=== PATIENT | male | born 2005 | race Caucasian/White ===

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

== ENCOUNTER 2023-03-02 15:52 | Outpatient (AMB) | payer OTHER, SELFPAY ==
--- NOTE | 2023-03-02 15:57 | MHC.PC.OV ---
Vital Signs 03/02/23 15:58 Height 5 ft 10 in Weight 109 lb 8 oz BMI 15.7 BP 98/66 Blood Pressure Location Lt brachial Position Sitting Respiration 12 Pulse 99 Pulse Source Pulse Oximeter Temp 98.8 F Temp Source Temporal Artery Scan Pulse Oximetry (%) 99 Oxygen Delivery Method Room Air Intake Visit Reasons: Annual Exam Intake Note: Patient has no concerns. [employer] Officer Required: No Accompanied by: Self / Same As Patient Allergies amoxicillin Allergy (Verified 03/02/23 16:03) Hives Penicillins Allergy (Verified 03/02/23 16:03) Hives Tobacco use date assessed: 03/02/23 Dental Screening Dental Screen Date: 03/02/23 Did you have a dental visit in the last 12 months?: Yes Did you have a dental problem in the last 6 months where you did not have access to dental care?: No Was dental information given to patient?: Patient has dentist HPI Annual Exam HPI Details 17 y/o male presents for an extended exam with f/u labs and health maintenance. No recent labs to review. Pt continues to lose weight - 114 lbs to 109 lbs. Pt reports increased anxiety/depression due to his seizures. Pt reports GERD. Pt reports he is unable to work in any meaningful capacity due to his current conditions. HPI Comments History of Present Illness Details Documentation assistance for Ashwin Gonzalez MD, was provided by Pete Bejarano,? Nurse Licensed Practical on 03/02/2023 4:27 PM MEERA. I, Dr. Gonzalez, have read, observed, and verified documentation.? [facility] Medical History (Updated 03/02/23 @ 16:27 by Pete Bejarano) No pertinent past medical history Surgical History (Updated 03/02/23 @ 16:04 by Alina Vallecillo MA) No pertinent past surgical history Family History Other Mental health disorder Substance use disorder Social History Housing: House Alcohol intake: never Patient Tobacco Use Status: Never used Tobacco e-Cigarette/Vaping Use: Currently Using Second Hand Smoke Exposure: No service: No Current occupational status: unemployed Current occupational exposures/hazards: No Cognitive needs: No Hearing needs: No Vision needs: No Questionnaire PHQ-9 Over the last 2 weeks, how often have you been bothered by any of the following problems? 1. Little interest or pleasure in doing things: not at all 2. Feeling down, depressed, or hopeless: more than half the days 3. Trouble falling or staying asleep, or sleeping too much: nearly every day 4. Feeling tired or having little energy: several days 5. Poor appetite or overeating: nearly every day 6. Feeling bad about yourself - or that you are a failure or have let yourself or your family down: several days 7. Trouble concentrating on things, such as reading the newspaper or watching television: several days 8. Moving or speaking so slowly that other people could have noticed. Or the opposite - being so fidgety or restless that you have been moving around a lot more than usual: more than half the days 9. Thoughts that you would be better off or of hurting yourself in some way: not at all Total score: 13 Depression Screening Interpretation: Positive 39302 - PHQ-9 Billing: Yes Source: Developed by Drs. Alxeander Johnson, Ирина Lovett, Giovanni Stallworth and colleagues, with an educational keturah from [employer]. CLAUDIO-7 AMB Questionnaire CLAUDIO-7 Date CLAUDIO - 7 assessed: 03/02/23 Feeling nervous, anxious, or on edge: 3 = Nearly every day Not being able to stop or control worryin = More than half the days Worrying too much about different things: 2 = More than half the days Trouble relaxin = Several days Being so restless that it is hard to sit still: 3 = Nearly every day Becoming easily annoyed or irritable: 1 = Several days Feeling afraid as if something awful might happen: 2 = More than half the days Total CLAUDIO-7 score (0-4 normal; 5-9 mild; 10-14 moderate; 15-21 severe): 14 Source: Developed by Drs. Alexander Johnson, Giovanni Osuna and colleagues, with an educational keturah from [employer]. Review of Systems Const Denies chills, Denies fatigue, Denies fever(s), Denies headache(s) and Denies weakness Eyes Denies change in vision ENT Denies dizziness, Denies headache(s), Denies hearing loss, Denies nasal congestion, Denies sinus pain, Denies sinus pressure and Denies sore throat Card Denies chest pain, Denies lightheadedness, Denies dyspnea and Denies other (palpitations) Resp Denies cough, Denies dyspnea and Denies wheezing GI Denies abdominal pain, Denies melena, Denies hematochezia, Denies change in bowel habits, Denies dyspepsia and Denies nausea Denies hematuria and Denies dysuria Musc Denies abnormal gait, Denies myalgias, Denies arthralgias, Denies numbness and Denies tingling Skin/Breast Denies rash, Denies unusual bruising and Denies wounds Neuro Denies abnormal gait, Denies dizziness, Denies headache(s), Denies memory loss, Denies numbness, Denies Sensory deficit (Neuro), Denies tingling and Denies weakness Psych Reports anxiety, Reports depression and Denies memory loss Endo Denies cold intolerance, Denies fatigue, Denies heat intolerance, Denies polydipsia and Denies polyuria Boaz/Lymph Denies easy bleeding and Denies easy bruising Aller/Immun Denies wheezing Physical exam (Primary Care) Vital Signs: Last Vital Signs Temp 98.8 F 03/02/23 15:58 Pulse 99 03/02/23 15:58 Resp 12 03/02/23 15:58 BP 98/66 03/02/23 15:58 Pulse Ox 99 03/02/23 15:58 Oxygen Delivery Method Room Air 03/02/23 15:58 BMI result Body Mass Index 15.7 Tobacco/Smoking Status: Tobacco use Status Tobacco use date assessed 03/02/23 03/02/23 16:05 Patient Tobacco Use Status Never used Tobacco 03/02/23 16:05 e-Cigarette/Vaping Use Currently Using 03/02/23 16:05 PHQ-9: PHQ-9 Score PHQ-9: Total score 13 03/02/23 16:15 Depression Screening Interpretation: Positive Const General: no acute distress, well developed, alert and awake Nutritional Appearance: underweight Orientation/consciousness: patient oriented x3 HENMT Head: Yes normocephalic and Yes atraumatic Ears: hearing grossly normal bilaterally and TM's normal bilaterally General nose exam: Normal external nose present and Normal nares present Mouth: Normal oral and palatal mucosa present and moist mucous membranes Teeth and gingiva: dentition normal Throat: Yes posterior oropharynx normal Eyes General: appearance normal, both eyes and all related structures Pupils: Equal, round and reactive pupils present and Pupil accommodation reflex normal EOM: EOMs intact bilaterally Neck Neck: Yes normal visual inspection, Yes no lymphadenopathy and Yes trachea midline Thyroid: Thyroid normal Carotids: no bruits Lymphatic: no lymphadenopathy noted Chest Chest palpation & inspection: normal inspection of the chest Resp Effort & Inspection: normal respiratory effort Auscultation: clear to auscultation bilaterally Cardio Rate: regular rate Rhythm: regular rhythm Heart sounds: S1 normal heart sound present, S2 normal heart sound present, no gallops, no murmurs and no rubs Bruits: no abdominal aortic bruits and no carotid bruits GI Palpation (GI): No Abdominal aortic bruit present, Soft to palpation, nontender, No hepatosplenomegaly present and No Rebound tenderness present Auscultation: normal bowel sounds General: Yes no CVA tenderness Back/Spine/Pelvis Back: no CVA tenderness Cervical Spine: cervical ROM normal and No Cervical spine tenderness Thoracic/Lumbar Spine: thoraco-lumbar ROM normal, No pain with thoraco-lumbar ROM, No thoracic spinal tenderness and No lumbar spinal tenderness Skin Lesions: no lesions Rashes: no rashes Trauma: no lacerations or abrasions Wounds: no wounds Nails: normal Neuro General: patient oriented x3 Cranial nerves: Yes Equal, round and reactive pupils present Cognition (Neuro): normal cognition Gait exam (Neuro): Normal gait present Motor exam (neuro): 5/5 motor strength present throughout Sensory Exam: No Sensory deficit (Neuro) Deep tendon reflexes (DTR's): Right patellar reflex intensity grade: 2+ and Left patellar reflex intensity grade: 2+ Extrem General: Yes normal to inspection and No edema Psych Appearance: grossly normal Affect: Anxious affect present Attitude: cooperative Thought process: Normal thought process present Assessment and Plan Assessment & Plan (1) Weight loss: Code(s): R63.4 - Abnormal weight loss Plan: Ongoing weight loss in 17-year-old patient with underweight state. Multifactorial with anxiety, depression, seizure disorder and possible medication and GI comorbidities impacting his weight. Had referred to gastroenterology but patient has not heard back from them. Referred to [facility] Pediatric Gastroenterology and Nutrition Department. Needs follow-up to ensure that he is scheduled. (2) Depression with anxiety: Code(s): F41.8 - Other specified anxiety disorders Plan: Still scoring significantly high with PHQ-9 and claudio 7. Does not want to take any more medications except his Keppra. Briefly discussed medication but will hold off and put effort into finding him a therapist. He says he has been working on this but that his insurance is a barrier to getting a therapist or psychiatrist. I have again asked the nurse navigators to help him get a therapist immediately. (3) Seizure: Code(s): R56.9 - Unspecified convulsions Plan: History of seizure disorder and this seems to be poorly controlled. He wants to be referred to another neurologist. Will refer to Neurology as patient request (4) GERD (gastroesophageal reflux disease): Code(s): K21.9 - Gastro-esophageal reflux disease without esophagitis Plan: Reflux/gastritis and acid stomach each morning which are likely affecting his appetite Start Pepcid at bedtime Referred to Pediatric Gastroenterology (5) Adult general medical exam: Code(s): Z00.00 - Encounter for general adult medical examination without abnormal findings Plan: 17-year-old male presents for extended exam Ongoing concerns regarding weight, anxiety and depression and seizure disorder - see above Requesting nurse navigator assist with referrals, services and some follow-up to ensure he receives them. Currently, based on the above conditions, patient is unable to work in any meaningful capacity. He is currently disabled. Will fill out paperwork for patient when he brings this. Orders: Orders Complete Blood Count Auto Diff Today D64.9 - Anemia, unspecified, Z00.00 - Encounter for general adult medical examination without abnormal findings Comprehensive [place]. Panel Fast Today R63.6 - Underweight, Z00.00 - Encounter for general adult medical examination without abnormal findings Microalbumin, Random (w Creat) Today I10 - Essential (primary) hypertension, R63.6 - Underweight Lipid Panel Today R63.6 - Underweight, Z00.00 - Encounter for general adult medical examination without abnormal findings TSH reflex Free T4 Today R63.6 - Underweight, Z00.00 - Encounter for general adult medical examination without abnormal findings UA and rflx microscopic Today R63.6 - Underweight, Z00.00 - Encounter for general adult medical examination without abnormal findings Vitamin B12 and Folate Today E53.8 - Deficiency of other specified B group vitamins, R63.6 - Underweight Vitamin D 25-OH Total Today E55.9 - Vitamin D deficiency, unspecified, R63.6 - Underweight Referrals Pediatric Gastroenterology Referral R63.4 - Abnormal weight loss, R63.6 - Underweight Nurse Navigator Referral F41.8 - Other specified anxiety disorders Neurology Referral G40.309 - Generalized idiopathic epilepsy and epileptic syndromes, not intractable, without status epilepticus Medications: New famotidine 20 mg PO BEDTIME 90 days 90 tabs 2RF Coding Level of Care Code Est Pt Level 4 (97663) Diagnoses Weight loss R63.4 Depression with anxiety F41.8 Seizure R56.9 GERD (gastroesophageal reflux disease) K21.9 Adult general medical exam Z00.00
[2023-03-02 15:58] VITALS: BP 98/66; PULSE 99; RESP 12; TEMP 37.1; O2SAT 99; BMI 15.7
== END 2023-03-02 17:03 | disposition home or self-care (01) ==
PROVIDERS: Visit Provider Family Medicine
DX: R63.4 Abnormal weight loss (principal); F41.8 Other specified anxiety disorders; R56.9 Unspecified convulsions; K21.9 Gastro-esophageal reflux disease without esophagitis; Z00.00 Encounter for general adult medical examination without abnormal findings
CPT/HCPCS: 99214

== ENCOUNTER 2023-06-21 09:42 | Outpatient (REF) | payer OTHER, SELFPAY ==
[2023-06-21 11:16] LABS: MANUAL DIFF FLAG NO
[2023-06-21 11:43] LABS: Basophils Percent Auto 0.4 % (0-2); Eosinophils Absolute Auto 0.1 X10*3/uL (0.0-0.4); Eosinophils Percent Auto 1.3 % (0-4); Hematocrit 42.4 % (42.0-52.0); Hemoglobin 14.4 g/dl (14.0-18.0); Imm Gran Abs Auto 0.01 X10*3/uL (0.00-0.03); Imm Gran Pct Auto 0.1 % (0.0-0.4); Lymphocytes Absolute Auto 3.6 X10*3/uL (1.2-4.9); Lymphocytes Percent Auto 50.3 % (20-40); Mean Corpuscular Hemoglobin 32.7 pg (27.0-33.0); Mean Corpuscular Volume 96.1 fL (80.0-98.0); Mean Platelet Volume 12.6 fL (9.4-12.4); Monocytes Absolute Auto 0.6 X10*3/uL (0.1-1.2); Monocytes Percent Auto 7.7 % (2-11); Neutrophils Absolute Auto 2.9 x10*3/uL (2.0-8.3); Neutrophils Percent Auto 40.2 % (45-73); Platelet Count 158 X10*3/uL (160-400); Red Blood Count 4.41 X10*6/uL (4.60-5.80); Red Cell Distribution Width 11.5 % (11.0-16.0); White Blood Count 7.2 X10*3/uL (4.8-10.8)
[2023-06-21 12:30] LABS: Alanine Aminotransferase 8 U/L (0-40); Albumin Level 4.9 g/dL (3.5-5.0); Alkaline Phosphatase 84 U/L (39-117); Anion Gap 14 (12-20); Aspartate Amino Transferase 16 U/L (5-37); Bilirubin Total 0.5 mg/dL (0.0-1.0); Blood Urea Nitrogen 8 mg/dL (9-16); Calcium 10.1 mg/dL (8.4-10.2); Carbon Dioxide 27 mmol/L (22-29); Chloride 107 mmol/L (96-108); Cholesterol 102 mg/dL (<200); Estimated Glomerular Filt Rate > 60; Glucose Fasting 100 mg/dL (60-99); Glucose Random 100 mg/dL (60-115); HDL Cholesterol 36 mg/dL (>40); LDL Cholesterol Calculated 53 mg/dL (<100); Potassium 4.3 mmol/L (3.3-5.1); Sodium 144 mmol/L (135-145); TSH reflex Free T4 1.48 uIU/mL (0.32-4.0); Total Protein 7.9 g/dL (6.5-8.0); Triglycerides 67 mg/dL (<150); Vitamin D 25-OH Total 38.2 ng/mL (>30)
[2023-06-21 12:39] LABS: Vitamin B12 373 pg/mL (200-900)
== END 2023-06-21 09:43 | disposition home or self-care (01) ==
LOC: HO.WFDLDS 09:42
PROVIDERS: Visit Provider Family Medicine
DX: Z00.00 Encounter for general adult medical examination without abnormal findings (principal); D64.9 Anemia, unspecified; I10 Essential (primary) hypertension; R63.6 Underweight; E55.9 Vitamin D deficiency, unspecified; R79.89 Other specified abnormal findings of blood chemistry
CPT/HCPCS: 36415; 80053; 80061; 82306; 82607; 82746; 84443; 85025

== ENCOUNTER 2023-07-03 15:37 | Outpatient (AMB) | payer OTHER, SELFPAY ==
--- NOTE | 2023-07-03 15:32 | MHC.PC.OV ---
Intake Visit Reasons: /u [id number] Intake Note: Patient is calling to follow up on labs today. Allergies amoxicillin Allergy (Verified 03/02/23 16:03) Hives Penicillins Allergy (Verified 03/02/23 16:03) Hives Tobacco use date assessed: 07/03/23 HPI /u [id number] HPI Details 18 y/o male presents to f/u CPE-labs via telemedicine. Labs were drawn 06/21/23. Reviewed labs with pt. Improving mild anemia. Borderline elevated fasting glucose of 100. Triglycerides 67. TC 102. LDL 53. HDL low at 36. Pt reports he now has a therapist he sees weekly. He reports he feels stable right now regarding his anxiety but does fluctuate. [facility] Medical History No pertinent past medical history Surgical History No pertinent past surgical history Family History Other Mental health disorder Substance use disorder Social History Housing: House Alcohol intake: never Patient Tobacco Use Status: Never used Tobacco e-Cigarette/Vaping Use: Currently Using Second Hand Smoke Exposure: No service: No Current occupational status: unemployed Current occupational exposures/hazards: No Cognitive needs: No Hearing needs: No Vision needs: No Questionnaire CLAUDIO-7 AMB Questionnaire CLAUDIO-7 Date CALUDIO - 7 assessed: 03/02/23 Source: Developed by Drs. Alexander Johnson, Ирина Lovett, Giovanni Stallworth and colleagues, with an educational keturah from [employer]. Physical exam (Primary Care) Tobacco/Smoking Status: Tobacco use Status Tobacco use date assessed 07/03/23 07/03/23 15:37 Patient Tobacco Use Status Never used Tobacco 07/03/23 15:37 e-Cigarette/Vaping Use Currently Using 07/03/23 15:37 Telehealth Telehealth Location of provider rendering services: practice address Location of patient: address on file Patient Identification confirmed using: Name, : Yes Telehealth method: voice only Patient verbally consented to treatment: Yes Patient verbally consented to billing insurance company: Yes Patient informed of any privacy concerns related to visit: Yes Minutes spent on Phone/Video with Pt.: 12 Assessment and Plan Assessment & Plan (1) Mild anemia: Code(s): D64.9 - Anemia, unspecified Plan: We?can?follow-up?on?this?at?a?subsequent?visit (2) Elevated fasting glucose: Code(s): R73.01 - Impaired fasting glucose Plan: Borderline?mildly?elevated?fasting?blood?sugar,?likely?secondary?to?his?antiseizure?medication We?can?follow-up?on?this?at?subsequent?lab?draw (3) Low HDL (under 40): Code(s): E78.6 - Lipoprotein deficiency Plan: Encouraged?weight-bearing?exercise?and?a?diet?higher?in?[place]?3?fatty?acids (4) Seizure: Code(s): R56.9 - Unspecified convulsions Plan: History?of?seizures. He?had?requested?a?referral?to?a?new?neurologist?and?I?had?referred?him?to?[facility]?neurology. Now?followed?by??[facility]?house?has?continued?his?Keppra?and?added?Depakote Will?request?neurologists?note Continue?to?follow-up?with?Neurology?as?recommended (5) GERD (gastroesophageal reflux disease): Code(s): K21.9 - Gastro-esophageal reflux disease without esophagitis Plan: Patient?still?has?not?had?an?appointment?with?[facility]?gastroenterology Referral?is?sent?again?today (6) Underweight: Code(s): R63.6 - Underweight Plan: As?above,?patient?is?referred?to?[facility]?gastroenterology Will?have?patient?return?in?a?few?months?for?follow-up Orders: Referrals Gastroenterology Referral K21.9 - Gastro-esophageal reflux disease without esophagitis, R14.0 - Abdominal distension (gaseous), R63.6 - Underweight Coding Level of Care Code Tele Est Pt Level 2 (60649) Diagnoses Mild anemia D64.9 Elevated fasting glucose R73.01 Low HDL (under 40) E78.6 Seizure R56.9 GERD (gastroesophageal reflux disease) K21.9 Underweight R63.6
== END 2023-07-03 17:00 ==
LOC: HO.HMGFM 15:38
PROVIDERS: PCP Family Medicine; Visit Provider Family Medicine
DX: D64.9 Anemia, unspecified (principal); R73.01 Impaired fasting glucose; E78.6 Lipoprotein deficiency; R56.9 Unspecified convulsions; K21.9 Gastro-esophageal reflux disease without esophagitis; R63.6 Underweight
CPT/HCPCS: 99212

== ENCOUNTER 2023-10-09 08:25 | Outpatient (AMB) | payer OTHER, SELFPAY ==
[2023-10-09 08:32] VITALS: BP 124/52; PULSE 104; RESP 12; O2SAT 99; BMI 16.2
--- NOTE | 2023-10-09 08:32 | A.OFFPC_ITS ---
Vital Signs 10/09/23 08:32 Height 5 ft 10 in Weight 113 lb BMI 16.2 BP 124/52 L Blood Pressure Location Rt brachial Position Sitting Respiration 12 Pulse 104 H Pulse Source Pulse Oximeter Pulse Oximetry (%) 99 Oxygen Delivery Method Room Air Intake Visit Reasons: Follow-up?underweight, anxiety/depression, GERD Intake Note: Patient is here to follow up. Pool Cleaner Required: No Accompanied by: Self / Same As Patient Allergies amoxicillin Allergy (Verified 10/09/23 08:37) Hives Penicillins Allergy (Verified 10/09/23 08:37) Hives Tobacco use date assessed: 10/09/23 Dental Screening Dental Screen Date: 10/09/23 Did you have a dental visit in the last 12 months?: No Did you have a dental problem in the last 6 months where you did not have access to dental care?: No Was dental information given to patient?: Patient has dentist HPI Follow-up?underweight, anxiety/depression, GERD HPI Details 18 y/o male presents to f/u underweight, anxiety/depression, GERD. Pt had been referred to gastroenterology for GERD and underweight. He does not remember if he has made an appt. with them or not. He continues to see Dr. Grimm [facility] for seizure disorder. He reports he has a sleep study scheduled next week. CLAUDIO-7 14, PHQ-9 15. He reports he has been seeing a therapist since May. HPI Comments History of Present Illness Details Documentation assistance for Ashwin Gonzalez MD, was provided by Pete Bejarano,? [employer] on 10/09/2023 9:04 AM EST. I, Dr. Gonzalez, have read, observed, and verified documentation. [facility], [facility] Medical History No pertinent past medical history Surgical History No pertinent past surgical history Family History Other Mental health disorder Substance use disorder Social History Household Members: Family Housing: House Are you a primary child care center administrator to a significant other at home: No Do you presently have visiting nurse or other home services: No Alcohol intake: never Patient Tobacco Use Status: Never used Tobacco e-Cigarette/Vaping Use: Currently Using Second Hand Smoke Exposure: No Substance Use Type: Marijuana service: No Current occupational status: unemployed Current occupational exposures/hazards: No Cognitive needs: No Hearing needs: No Vision needs: No Questionnaire PHQ-9 Over the last 2 weeks, how often have you been bothered by any of the following problems? 1. Little interest or pleasure in doing things: more than half the days 2. Feeling down, depressed, or hopeless: more than half the days 3. Trouble falling or staying asleep, or sleeping too much: nearly every day 4. Feeling tired or having little energy: several days 5. Poor appetite or overeating: nearly every day 6. Feeling bad about yourself - or that you are a failure or have let yourself or your family down: several days 7. Trouble concentrating on things, such as reading the newspaper or watching television: several days 8. Moving or speaking so slowly that other people could have noticed. Or the opposite - being so fidgety or restless that you have been moving around a lot more than usual: more than half the days 9. Thoughts that you would be better off or of hurting yourself in some way: not at all Total score: 15 Depression Screening Interpretation: Positive Depression Screening Done: Yes 85221 - PHQ-9 Billing: Yes Source: Developed by Drs. Alexander Johnson, Ирина Lovett, Giovanni Stallworth and colleagues, with an educational keturah from [employer]. Thrive Questionnaire Date Thrive assessed: 10/09/23 I am a: Patient What is your living situation today?: I have a steady place to live Within the past 12 months, did the food you bought not last and you didn't have the money to get more?: Never true Within the past 12 months, did you worry whether your food would run out before you got money to buy more?: Never true Do you have trouble paying for medicines?: No Do you have trouble getting transportation to medical appointments?: No Do you have trouble paying your heating and electricity bill?: No Do you have trouble taking care of your child, family member or friend?: No Do you have trouble with day-to-day activities such as bathing, preparing meals, shopping, managing finances, etc.?: No Are you currently unemployed and looking for a job?: No Are you interested in more education?: No Please select the resources that you would like help with: None Currently or been in a relationship where the following occur: no concerns reported THRIVE Score: 0 AUDIT C Alcohol Use Questionnaire (AUDIT-C) 1. How often do you have a drink containing alcohol?: Never 3. How often do you have six or more drinks on one occasion?: Never Total Score: 0 CLAUDIO-7 AMB Questionnaire CLAUDIO-7 Date CLAUDIO - 7 assessed: 10/09/23 Feeling nervous, anxious, or on edge: 3 = Nearly every day Not being able to stop or control worryin = More than half the days Worrying too much about different things: 2 = More than half the days Trouble relaxin = More than half the days Being so restless that it is hard to sit still: 2 = More than half the days Becoming easily annoyed or irritable: 1 = Several days Feeling afraid as if something awful might happen: 2 = More than half the days Total CLAUDIO-7 score (0-4 normal; 5-9 mild; 10-14 moderate; 15-21 severe): 14 Source: Developed by Drs. Alexander Johnson, Ирина Lovett, Giovanni Stallworth and colleagues, with an educational keturah from [employer]. CLAUDIO-7 Assessment Billing CLAUDIO-7 Assessment Tool: CLAUDIO-7 Assessment 57342 Review of Systems Const Denies chills, Denies fatigue, Denies fever(s), Denies headache(s) and Denies weakness ENT Denies dizziness and Denies headache(s) Card Denies chest pain, Denies lightheadedness, Denies dyspnea and Denies other (Palpitations) Resp Denies cough, Denies dyspnea, Denies wheezing and Denies other ( shortness of breath) Musc Denies numbness and Denies tingling Neuro Denies dizziness, Denies headache(s), Denies numbness, Denies tingling, Denies paresthesias and Denies weakness Psych Reports anxiety and Reports depression Endo Denies fatigue Aller/Immun Denies wheezing Physical exam (Primary Care) Vital Signs: Last Vital Signs Pulse 104 H 10/09/23 08:32 Resp 12 10/09/23 08:32 BP 124/52 L 10/09/23 08:32 Pulse Ox 99 10/09/23 08:32 Oxygen Delivery Method Room Air 10/09/23 08:32 BMI result Body Mass Index 16.2 Tobacco/Smoking Status: Tobacco use Status Tobacco use date assessed 10/09/23 10/09/23 08:39 Patient Tobacco Use Status Never used Tobacco 10/09/23 08:39 e-Cigarette/Vaping Use Currently Using 10/09/23 08:39 PHQ-9: PHQ-9 Score PHQ-9: Total score 15 10/09/23 08:46 Depression Screening Interpretation: Positive Thrive Assessment: Date of Thrive Assessment Date Thrive assessed 10/09/23 10/09/23 08:42 Currently or been in a relationship where the following occur: no concerns reported Const General: no acute distress and well developed Nutritional Appearance: well nourished Orientation/consciousness: patient oriented x3 HENMT Head: Yes normocephalic and Yes atraumatic Eyes General: appearance normal, both eyes and all related structures Pupils: Equal, round and reactive pupils present EOM: EOMs intact bilaterally Resp Effort & Inspection: normal respiratory effort Auscultation: clear to auscultation bilaterally Cardio Rate: regular rate Rhythm: regular rhythm Heart sounds: S1 normal heart sound present, S2 normal heart sound present, no gallops, no murmurs and no rubs Neuro General: patient oriented x3 and gait normal Cranial nerves: Yes Equal, round and reactive pupils present Psych Affect: normal affect Assessment and Plan Assessment & Plan (1) Underweight: Code(s): R63.6 - Underweight Plan: Patient?has?gained?about?4?lb Will?continue?to?follow (2) Generalized seizure disorder: Code(s): G40.309 - Generalized idiopathic epilepsy and epileptic syndromes, not intractable, without status epilepticus Plan: Stable. Has?now?been?seeing?Neurology,??Alfa I?have?requested?his?most?recent?note (3) Depression with anxiety: Code(s): F41.8 - Other specified anxiety disorders Plan: Ongoing?depression?and?anxiety Patient?now?has?a?therapist Will?try?citalopram (4) GERD (gastroesophageal reflux disease): Code(s): K21.9 - Gastro-esophageal reflux disease without esophagitis Plan: Had?referred?patient?to?[facility]?gastroenterology For?GERD?and?also?underweight?status Unclear?if?he?has?been?contacted. Will?ask?office?staff?to?check?on?status?of?referral Medications: New citalopram 20 mg PO DAILY 30 tabs 2RF 30 days Coding Level of Care Code Est Pt Level 4 (41473) Diagnoses Underweight R63.6 Generalized seizure disorder G40.309 Depression with anxiety F41.8 GERD (gastroesophageal reflux disease) K21.9 Additional Codes CLAUDIO-7 Assessment Billing - CLAUDIO-7 Assessment Tool: CLAUDIO-7 Assessment 23642 ([id number])
== END 2023-10-09 09:08 | disposition home or self-care (01) ==
PROVIDERS: PCP Family Medicine; Visit Provider Family Medicine
DX: R63.6 Underweight (principal); G40.309 Generalized idiopathic epilepsy and epileptic syndromes, not intractable, without status epilepticus; F41.8 Other specified anxiety disorders; K21.9 Gastro-esophageal reflux disease without esophagitis
CPT/HCPCS: 96127; 99214

== ENCOUNTER 2024-01-08 09:30 | Outpatient (AMB) | payer OTHER, SELFPAY ==
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
[2024-01-08 09:34] VITALS: BP 108/62; PULSE 83; O2SAT 99; BMI 15.8
== END 2024-01-08 09:59 | disposition home or self-care (01) ==
PROVIDERS: PCP Family Medicine; Visit Provider Family Medicine
DX: G40.309 Generalized idiopathic epilepsy and epileptic syndromes, not intractable, without status epilepticus (principal); F41.8 Other specified anxiety disorders; R63.6 Underweight
CPT/HCPCS: 99214

== ENCOUNTER 2024-04-30 12:06 | Outpatient (AMB) | payer OTHER, SELFPAY ==
--- NOTE | 2024-04-30 12:09 | A.OFFPC_ITS ---
Vital Signs 04/30/24 12:11 Height 5 ft 10 in Weight 120 lb BMI 17.2 BP 98/66 Blood Pressure Location Rt brachial Position Sitting Respiration 13 Pulse 86 Pulse Source Pulse Oximeter Pulse Oximetry (%) 99 Oxygen Delivery Method Room Air Intake Visit Reasons: cpe Intake Note: annual physical Allergies amoxicillin Allergy (Verified 04/30/24 12:17) Hives Penicillins Allergy (Verified 04/30/24 12:17) Hives Medication List - Last Reconciled 04/30/24 by SARAI Devine- citalopram 20 mg PO DAILY 30 days divalproex ER (Depakote ER) 500 mg PO DAILY levetiracetam (Keppra) 500 mg PO Q12H 30 days Tobacco use date assessed: 01/08/24 Dental Screening Dental Screen Date: 10/09/23 HPI HPI Comments History of Present Illness Details 19 y/o M with seizure disorder, MDD, CLAUDIO , underweight, tourrettes with ocular tic, L sided bells palsy, muscular dystrophy, marijuana use, GERD, Vit d def, Surgery: None Family hx: no changes since last visit Social: Drives; looking for a job; lives w/ Mom and Sister Specialists: Psych -- decided to not follow through w/ this at this time Neuro q6 mo visits Counseling - feels this is going really well Patient of Dr Morales here today for CPE Well controlled Sz, last one May 2021. Eyes: wears glasses, exam 2023 Mood: good. Eating more; feels therapy is going good. + wt gain Hearing - no issues Declined labs. Plan Declined labs Declined Flu and Tdap Marijuana cessation education provided Screen for physical abuse given exam, adamantly denied. Cont meds and f/u with team RTO 3 months to fu with PCP for Mood and Wt, sooner PRN PFSH Medical History No pertinent past medical history Surgical History No pertinent past surgical history Family History Other Mental health disorder Substance use disorder Social History Household Members: Family Housing: House Are you a primary medical care administrator to a significant other at home: No Do you presently have visiting nurse or other home services: No Alcohol intake: never Patient Tobacco Use Status: Never used Tobacco e-Cigarette/Vaping Use: Currently Using Second Hand Smoke Exposure: No Substance Use Type: Marijuana service: No Current occupational status: unemployed Current occupational exposures/hazards: No Cognitive needs: No Hearing needs: No Vision needs: No Questionnaire PHQ-9 Over the last 2 weeks, how often have you been bothered by any of the following problems? 1. Little interest or pleasure in doing things: not at all 2. Feeling down, depressed, or hopeless: not at all 3. Trouble falling or staying asleep, or sleeping too much: several days 4. Feeling tired or having little energy: several days 5. Poor appetite or overeating: not at all 6. Feeling bad about yourself - or that you are a failure or have let yourself or your family down: not at all 7. Trouble concentrating on things, such as reading the newspaper or watching television: not at all 8. Moving or speaking so slowly that other people could have noticed. Or the opp osite - being so fidgety or restless that you have been moving around a lot more than usual: several days 9. Thoughts that you would be better off or of hurting yourself in some way: not at all Total score: 3 Depression Screening Interpretation: Negative Depression Screening Done: Yes 69470 - PHQ-9 Billing: Yes Source: Developed by Drs. Alexander Johnson, Ирина Lovett, Giovanni Stallworth and colleagues, with an educational keturah from [employer]. Thrive Questionnaire Date Thrive assessed: 04/30/24 I am a: Patient What is your living situation today?: I have a place to live, but I am worried about losing it in the future Within the past 12 months, did the food you bought not last and you didn't have the money to get more?: I choose not to answer this question Within the past 12 months, did you worry whether your food would run out before you got money to buy more?: I choose not to answer this question Do you have trouble paying for medicines?: No Do you have trouble getting transportation to medical appointments?: No Do you have trouble paying your heating and electricity bill?: No Do you have trouble taking care of your child, family member or friend?: I choose not to answer this question Do you have trouble with day-to-day activities such as bathing, preparing meals, shopping, managing finances, etc.?: No Are you currently unemployed and looking for a job?: Yes Are you interested in more education?: Yes Please select the resources that you would like help with: None Currently or been in a relationship where the following occur: No concerns reported THRIVE Score: 1 AUDIT C Alcohol Use Questionnaire (AUDIT-C) 1. How often do you have a drink containing alcohol?: Never 2. How many drinks containing alcohol do you have on a typical day when you are drinking?: 1 or 2 3. How often do you have six or more drinks on one occasion?: Never Total Score: 0 Score Reviewed/Action Taken: Yes CLAUDIO-7 AMB Questionnaire CLAUDIO-7 Date CLAUDIO - 7 assessed: 04/30/24 Feeling nervous, anxious, or on edge: 1 = Several days Not being able to stop or control worryin = Not at all Worrying too much about different things: 0 = Not at all Trouble relaxin = Several days Being so restless that it is hard to sit still: 0 = Not at all Becoming easily annoyed or irritable: 1 = Several days Feeling afraid as if something awful might happen: 0 = Not at all Total CLAUDIO-7 score (0-4 normal; 5-9 mild; 10-14 moderate; 15-21 severe): 3 Source: Developed by Drs. Alexander Johnson, Ирина Lovett, Giovanni Stallworth and colleagues, with an educational keturah from [employer]. CLAUDIO-7 Assessment Billing CLAUDIO-7 Assessment Tool: CLAUDIO-7 Assessment 03812 Review of Systems Const Details: Constitutional: Denies fever. Skin: Denies rash. Eye: Denies eye pain. ENMT: Denies sore throat and nasal congestion. Respiratory: Denies shortness of breath and cough. Gastrointestinal: Denies nausea, vomiting or abdominal pain. Cardiovascular: Denies chest pain and syncope. Genitourinary: Denies dysuria. Musculoskeletal: Denies back pain and extremity pain. Neurologic: Denies headaches, confusion, and weakness. Psychiatric: Denies suicidal thoughts and substance abuse. Allergy/ Immunologic: Denies impaired immunity. Physical exam (Primary Care) Vital Signs: Last Vital Signs Pulse 86 04/30/24 12:11 Resp 13 04/30/24 12:11 BP 98/66 04/30/24 12:11 Pulse Ox 99 04/30/24 12:11 Oxygen Delivery Method Room Air 04/30/24 12:11 BMI result Body Mass Index 17.2 BMI Assessment/Plan discussion: Low BMI Low, Plan discussed: lifestyle, increase calorie intake and dietary Tobacco/Smoking Status: Tobacco use Status Tobacco use date assessed 01/08/24 04/30/24 12:11 Patient Tobacco Use Status Never used Tobacco 04/30/24 12:11 e-Cigarette/Vaping Use Currently Using 04/30/24 12:11 PHQ-9: PHQ-9 Score PHQ-9: Total score 3 04/30/24 12:15 Depression Screening Interpretation: Negative Thrive Assessment: Date of Thrive Assessment Date Thrive assessed 04/30/24 04/30/24 12:11 Currently or been in a relationship where the following occur: No concerns reported Const Other: General: Thin. Appears stated age. Head: Normocephalic, atraumatic. Eyes: Pupils are equal, round and reactive to light and accommodation. Conjunctivae are clear. Vision grossly normal. Ears: TMs clear AU, EACS WNL Nose: Patent, without discharge. Mouth: There are no ulcers or lesions noted. No inflammation, no post nasal drip, no plaques nor exudates. Neck: Supple, no adenopathy or thyromegaly. Lungs: Clear to auscultation bilaterally. No rales, rhonchi or wheeze noted. Good air flow in all goff. Heart: Regular rate and rhythm. No murmurs, click, rubs or gallops are noted. Abdomen: Bowel sounds present in all quadrants. The abdomen is soft, nontender, with no masses or organomegaly noted. No hernias are noted. Musculoskeletal: Joints are nontender, without swelling, redness, or effusions. Range of motion is observed to be normal. Pulses: Peripheral pulses are equal and palpable bilaterally. Extremities: No clubbing, cyanosis nor edema is noted. Neurologic: Gait and station normal. Cranial Nerves 2-12 intact. Motor strength grossly symmetrical and intact. No sensory loss. Balance normal. Skin: No rashes, ulcers, or lesions noted. Turgor is good. Skin color is good. Hair and nails are without abnormalities. On posterior back there are several transverse linear scars. When asked about this patient reports that these are stretch ladd. I specifically asked him about any physical abuse or self-harm. He adamantly denied Psych: Normal eye contact, affect and mood appropriate, and normal interactions. Patient is alert and appropriate to context. Coding Level of Care Code Est Pt Prev Care 18-39y(93470) Diagnoses Encounter for general adult medical examination without abnormal findings Z00.00 Marijuana use F12.90 Tourette syndrome F95.2 Generalized seizure disorder G40.309 Underweight R63.6 Depression with anxiety F41.8 Additional Codes CLAUDIO-7 Assessment Billing - CLAUDIO-7 Assessment Tool: CLAUDIO-7 Assessment 13708 ([id number]) Assessment & Plan Assessment & Plan (1) Encounter for general adult medical examination without abnormal findings: Code(s): Z00.00 - Encounter for general adult medical examination without abnormal findings Plan: . (2) Marijuana use: Code(s): F12.90 - Cannabis use, unspecified, uncomplicated Category: Medical Plan: Marijuana: Natural = Safe, Right? Marijuana is readily available to use in many states in the [facility]. Understanding the possible risks of use is important to ensure the safety. No matter how you use marijuana (smoke it, eat it, or apply to your skin), it may cause problems with both short term and terminal computer operator use How marijuana affects your BRAIN: Potential effects from Short Term Use Poor focus, memory and reaction time Difficulty with problem solving Hallucinations, paranoia, anxiety Potential effects from Polysomnography Technician Use Memory problems and trouble learning new things Depression, hallucinations, paranoia, anxiety, worsening PTSD symptoms addiction Brain. It is not safe to drive while on marijuana. It makes it hard to aviation project manager distance, concentrate, react quickly to signals and sounds, be alert and coordinated. If alcohol is combined, this risk is even higher! In regular users, some of the effects from terminal computer operator use may last for days or even weeks after stopping marijuana. How inhaling marijuana affects your LUNGS: Inhaling harmful chemicals Gases Small particles Carcinogens (toxins linked to cancer) Breathing problems similar to tobacco smokers Daily cough with mucus Difficulty breathing Lung infections (bronchitis, pneumonia) Lungs How marijuana affects your HEART: Increases risk of heart attack Within the first hour of smoking Increases heart rate 20?100% increase after smoking Increase lasts up to three hours Changes in heart rhythm Feels like your heart skips a beat, or is fluttering, or beating too fast or too slow Heart Is it SAFE to use marijuana with other medications? A combination that can be concerning is the use of opioids and/or benzodiazepines with marijuana. Opioids + Benzodiazepines + Marijuana: Drowsiness: All three can cause drowsiness. Reaction time: All three can reduce reaction time. Do not drive or operate machinery. Overdose: Opioids and Benzodiazepines can cause reduced breathing and in some cases, breathing can stop and a person can . Marijuana containing higher levels of THC may cause difficulty with thinking and memory and this could result in medication errors where extra doses of opioids, benzodiazepines, or other medications may be taken. What is the harm? Example of Opioids Morphine (MS Contin?, Portia?) Oxycodone (Percocet?, OxyContin?) Hydrocodone (Vicodin?, Dumas?) Fentanyl (Duragesic?) Methadone Heroin Example of Benzodiazepines Lorazepam (Ativan?) Diazepam (Valium?) Alprazolam (Xanax?) Clonazepam (Klonopin?) If you have specific questions about the safety of using marijuana with other medications, please contact your provider or pharmacist. Some marijuana users can become addicted! You can have problems with marijuana withdrawal. You may have withdrawal symptoms the day after you stop using. These can get worse 2 to 3 days after using and can take 1 to 2 weeks or longer to go away. Recovery and Treatment Contact your provider or health care team if you are having concerns about your marijuana use or to learn more about available treatment services. The marijuana plant is not an FDA-approved medicine: The U.S. Food and Drug Administration (FDA) has not approved the marijuana plant as a medication due to lack of studies on the risks and benefits. Marijuana contains over 100 chemical substances known as cannabinoids. Some of these, like tetrahydrocannabinol (THC), have mind altering effects and can be intoxicating. Cannabidiol (CBD), another cannabinoid, does not cause the same ?high? users of THC experience. THC has been studied for the treatment of several conditions, including nausea and increasing appetite. CBD is similarly being studied for a number of conditions, including childhood epilepsy and inflammation. What is different between the marijuana product I get from the marijuana shop and a prescription from the pharmacy? The right dose of any medicine is important. A specific dose of THC is approved to treat nausea, but high doses of THC may cause vomiting. The ingredients in a medicine must be measured and stay the same from one dose to the next. The marijuana plant contains unknown ingredients that change from plant to plant. This makes it hard to control the ?dose? of marijuana needed to treat a condition and use it in the same way we use other medicines. Future studies are ongoing to establish the role of the marijuana plant and the cannabinoids found in the plant for treatment of medical conditions. If you have questions about using a marijuana product for a medical condition, please discuss this with your medical provider to determine the most appropriate treatment for you. [facility] Providers are not able to prescribe marijuana products. Information in this document was compiled by the [facility] Substance Abuse treatment and Education ([facility]). It contains information from factsheets by the National [place] on Drug Abuse (www.drugabuse.gov) and presentation by Aditi Cotto, Aditi Simmons, & Kevin Licona (2010) entitled ?What providers need to know about cannabis use in Veterans with mental health conditions: Research, policy, practice,? and an additional reference: Haleigh Patel M.D., Jas Villatoro, Ph.D., Cesar Rojas M.D., and Dimple Eduardo, Ph.D: Adverse Effects of Marijuana. N Engl J Med 2014; 370:5528-5668, December 18, 2013 DOI: 10.1056/[id number]. [place] [employer] (3) Tourette syndrome: Comment: With left ocular tick Code(s): F95.2 - Tourette's disorder Category: Medical Plan: . (4) Generalized seizure disorder: Code(s): G40.309 - Generalized idiopathic epilepsy and epileptic syndromes, not intractable, without status epilepticus Category: Medical Plan: . (5) Underweight: Code(s): R63.6 - Underweight Category: Medical Plan: . (6) Depression with anxiety: Code(s): F41.8 - Other specified anxiety disorders Category: Medical Plan: . Plan . Patient Instructions: Health screenings for men ages 40 to 64 You should visit your health care provider regularly, even if you feel healthy. The purpose of these visits is to: Screen for medical issues Assess your risk for future medical problems Encourage a healthy lifestyle Update vaccinations and other preventive care services Help you get to know your provider in case of an illness Information Even if you feel fine, you should still see your provider for regular checkups. These visits can help you avoid problems in the future. For example, the only way to find out if you have high blood pressure is to have it checked regularly. High blood sugar and high cholesterol level also may not have any symptoms in the early stages. Simple blood tests can check for these conditions. There are specific times when you should see your provider or receive specific health screenings. The US Preventive Services Task Force publishes a list of recommended screenings. Below are screening guidelines for men ages 40 to 64. BLOOD PRESSURE SCREENING Have your blood pressure checked at least once every year. Watch for blood pressure screenings in your area. Ask your provider if you can stop in to have your blood pressure checked. Ask your provider if you need your blood pressure checked more often if: You have diabetes, heart disease, kidney problems, or are overweight or have certain other health conditions You have a first-degree relative with high blood pressure You are Black Your blood pressure top number is from 120 to 129 mm Hg, or the bottom number is from 70 to 79 mm Hg If the top number is 130 mm Hg or greater or the bottom number is 80 mm Hg or greater, this is considered stage 1 hypertension. Schedule an appointment with your provider to learn how you can lower your blood pressure. Effects of age on blood pressure CHOLESTEROL SCREENING Cholesterol screening should begin at age 35 for men with no known risk factors for coronary heart disease. Repeat cholesterol screening should take place: Every 5 years for men with normal cholesterol levels More often if changes occur in lifestyle (including weight gain and diet) More often if you have diabetes, heart disease, kidney problems, or certain othe r conditions COLORECTAL CANCER SCREENING If you are under age 45, talk to your provider about getting screened. You may need to be screened if you have a strong family history of colon cancer or [place]akota yps. Screening may also be considered if you have risk factors such as a history of inflammatory bowel disease or polyps. If you are age 45 to 75, you should be screened for colorectal cancer. There are several screening tests available: A stool-based fecal occult blood (gFOBT) or fecal immunochemical test (FIT) every year A stool sDNA test every 1 to 3 years Flexible sigmoidoscopy every 5 years or every 10 years with stool testing FIT done every year CT colonography (virtual colonoscopy) every 5 years Colonoscopy every 10 years You may need a colonoscopy more often if you have risk factors for colorectal cancer, such as: Ulcerative colitis A personal or family history of colorectal cancer A history of growths in your colon called adenomatous polyps DENTAL EXAM Go to the dentist once or twice every year for an exam and cleaning. Your dentist will evaluate if you have a need for more frequent visits. DIABETES SCREENING All adults who do not have risk factors for diabetes should be screened starting at age 35 and repeated every 3 years. If you have other risk factors for diabetes, such as a first degree relative with diabetes, overweight or obesity, high blood pressure, prediabetes, or a history of heart disease, you may be tested more often. If you are overweight and have other risk factors, such as high blood pressure and are planning to become , screening is recommended. EYE EXAM Have an eye exam every 2 to 4 years ages 40 to 54 and every 1 to 3 years ages 55 to 64. Your provider may recommend more frequent eye exams if you have vision problems or glaucoma risk. Have an eye exam that includes an examination of your retina (back of your eye) at least every year if you have diabetes. IMMUNIZATIONS Commonly needed vaccines include: Flu shot: get one every year COVID-19 vaccine: ask your provider what is best for you Tetanus-diphtheria and acellular pertussis (Tdap) vaccine: have as one of your tetanus-diphtheria vaccines if you did not receive it as an adolescent Tetanus-diphtheria: have a booster (or Tdap) every 10 years Varicella vaccine: receive 2 doses if you never had chickenpox or the varicella vaccine and were born in 1980 or after Hepatitis B vaccine: receive 2, 3, or 4 doses, depending on your exact circumstances, if you did not receive these as a child or adolescent, until age 59 Shingles (herpes zoster) vaccine: at or after age 50 Ask your provider if you should receive other immunizations, especially if you have certain medical conditions, such as diabetes or are at increased risk for some diseases such as pneumonia. INFECTIOUS DISEASE SCREENING Screening for hepatitis C: all adults ages 18 to 79 should get a one-time test for hepatitis C. Screening for human immunodeficiency virus (HIV): all people ages 15 to 65 shoul d get a one-time test for HIV. Depending on your lifestyle and medical history, you may need to be screened for infections such as syphilis, chlamydia, and other infections. LUNG CANCER SCREENING You should have an annual screening for lung cancer with low-dose computed tomography (LDCT) if: You are age 50 to 80 years AND You have a 20 pack-year smoking history AND You currently smoke or have quit within the past 15 years OSTEOPOROSIS SCREENING If you are age 50 to 64 and have risk factors for osteoporosis, you should discuss screening with your provider. Risk factors can include long-term steroid use, low body weight, smoking, heavy alcohol use, having a fracture after age 50, or a family history of hip fracture or osteoporosis. Osteoporosis PHYSICAL EXAM All adults should visit their provider from time to time, even if they are healthy. The purpose of these visits is to: Screen for diseases Assess risk of future medical problems Encourage a healthy lifestyle Update vaccinations and other preventive care services Maintain a relationship with a provider in case of an illness Your height, weight, and body mass index (BMI) should be checked at every exam. During your exam, your provider may ask you about: Depression and anxiety Diet and exercise Alcohol and tobacco use Safety, such as use of seat belts and smoke detectors Your medicines and risk for interactions PROSTATE CANCER SCREENING If you're 55 through 69 years old, before having the test, talk to your provider about the pros and cons of having a PSA test. Ask about: Whether screening decreases your chance of dying from prostate cancer. Whether there is any harm from prostate cancer screening, such as side effects from testing or overtreatment of cancer when discovered. Whether you have a higher risk of prostate cancer than others. If you are age 55 or younger, screening is not generally recommended. You should talk with your provider about if you have a higher risk for prostate cancer. Risk factors include: Having a family history of prostate cancer (especially a brother or father) Being If you choose to be tested, the PSA blood test is repeated over time (yearly or less often), though the best frequency is not known. Prostate examinations are no longer routinely done on men with no symptoms. Prostate cancer SKIN EXAM Your provider may check your skin for signs of skin cancer, especially if you're at high risk. People at high risk include those who have had skin cancer before, have close relatives with skin cancer, or have a weakened immune system. TESTICULAR EXAM The [place] Preventive Services Task Force (USPSTF) now recommends against performing testicular self-exams. Doing testicular self-exams has been shown to have little to no benefit.
[2024-04-30 12:11] VITALS: BP 98/66; PULSE 86; RESP 13; O2SAT 99; BMI 17.2
== END 2024-04-30 12:33 | disposition home or self-care (01) ==
PROVIDERS: PCP Family Medicine; Visit Provider Nurse Practitioner Family
DX: Z00.00 Encounter for general adult medical examination without abnormal findings (principal); F12.90 Cannabis use, unspecified, uncomplicated; F95.2 Tourette's disorder; G40.309 Generalized idiopathic epilepsy and epileptic syndromes, not intractable, without status epilepticus; R63.6 Underweight; F41.8 Other specified anxiety disorders

== ENCOUNTER → 2024-04-30 12:06 | Outpatient (BNVA) | payer OTHER, SELFPAY | PROVIDERS: PCP Family Medicine; Visit Provider Nurse Practitioner Family | DX: Z00.00 Encounter for general adult medical examination without abnormal findings (principal); F12.90 Cannabis use, unspecified, uncomplicated; F95.2 Tourette's disorder; G40.309 Generalized idiopathic epilepsy and epileptic syndromes, not intractable, without status epilepticus; R63.6 Underweight; F41.8 Other specified anxiety disorders | CPT/HCPCS: 96127; 99395 ==

== ENCOUNTER 2024-10-30 10:50 | Outpatient (AMB) | payer OTHER, SELFPAY ==
--- NOTE | 2024-10-30 10:53 | MHC.PC.OV ---
Vital Signs 10/30/24 10:57 Height 5 ft 10 in Weight 113 lb 6 oz BMI 16.3 BP 122/60 Blood Pressure Location Rt brachial Position Sitting Respiration 16 Pulse 102 H Pulse Source Pulse Oximeter Temp 97.4 F Temp Source Oral Pulse Oximetry (%) 99 Oxygen Delivery Method Room Air Intake Visit Reasons: [address] Carmen eckert MDD/Wt Intake Note: patient here for 3 month follow up on MDD and Wt Bootmaker Required: No Allergies amoxicillin Allergy (Verified 10/30/24 10:54) Hives Penicillins Allergy (Verified 10/30/24 10:54) Hives Medication List - Last Reconciled 10/30/24 by Ashwin Gonzalez MD citalopram 20 mg PO DAILY 90 days divalproex ER (Depakote ER) 500 mg PO DAILY levetiracetam (Keppra) 500 mg PO Q12H 30 days Tobacco use date assessed: 10/30/24 Dental Screening Dental Screen Date: 10/30/24 Did you have a dental visit in the last 12 months?: No Did you have a dental problem in the last 6 months where you did not have access to dental care?: No Was dental information given to patient?: Yes HPI [address] Carmen eckert MDD/Wt HPI Details Patient?presents?to?follow-up anxiety?depression?and?underweight?status. Taking?citalopram?as?prescribed. Had?referred?him?to?Psychiatry?but?he?was?never?contacted.??Apparently?his?voicemail?was?full Still?has?ongoing difficult?relationship?with?food?though?he?says?this?has?improved?some.??He?is?working?on?this?with?his?therapist. Citalopram?is?helping Followed?by?neurology.??I?have?requested?most?recent?noted?but?only?received?a?partial?note. [facility] Medical History No pertinent past medical history Surgical History No pertinent past surgical history Family History Other Mental health disorder Substance use disorder Social History Household Members: Family Housing: House Are you a primary special needs caregiver to a significant other at home: No Do you presently have visiting nurse or other home services: No Alcohol intake: never Patient Tobacco Use Status: Never used Tobacco e-Cigarette/Vaping Use: Currently Using Second Hand Smoke Exposure: No Substance Use Type: Marijuana service: No Current occupational status: unemployed Current occupational exposures/hazards: No Cognitive needs: No Hearing needs: No Vision needs: No Questionnaire PHQ-9 Over the last 2 weeks, how often have you been bothered by any of the following problems? 1. Little interest or pleasure in doing things: more than half the days 2. Feeling down, depressed, or hopeless: more than half the days 3. Trouble falling or staying asleep, or sleeping too much: nearly every day 4. Feeling tired or having little energy: several days 5. Poor appetite or overeating: several days 6. Feeling bad about yourself - or that you are a failure or have let yourself or your family down: several days 7. Trouble concentrating on things, such as reading the newspaper or watching television: more than half the days 8. Moving or speaking so slowly that other people could have noticed. Or the opposite - being so fidgety or restless that you have been moving around a lot more than usual: more than half the days 9. Thoughts that you would be better off or of hurting yourself in some way: not at all Total score: 14 Source: Developed by Drs. Alexander Johnson, Ирина Lovett, Giovanni Stallworth and colleagues, with an educational keturah from [employer] Thrive Questionnaire Date Thrive assessed: 04/30/24 I am a: Patient What is your living situation today?: I choose not to answer this question Within the past 12 months, did the food you bought not last and you didn't have the money to get more?: Sometimes True Within the past 12 months, did you worry whether your food would run out before you got money to buy more?: Often true Do you have trouble paying for medicines?: No Do you have trouble getting transportation to medical appointments?: No Do you have trouble paying your heating and electricity bill?: I choose not to answer this question Do you have trouble taking care of your child, family member or friend?: I choose not to answer this question Do you have trouble with day-to-day activities such as bathing, preparing meals, shopping, managing finances, etc.?: Yes Are you currently unemployed and looking for a job?: I choose not to answer this question Are you interested in more education?: Yes Please select the resources that you would like help with: Housing/Care Home Currently or been in a relationship where the following occur: No concerns reported THRIVE Score: 2 AUDIT C Alcohol Use Questionnaire (AUDIT-C) 1. How often do you have a drink containing alcohol?: Never Total Score: 0 CLAUDIO-7 AMB Questionnaire CLAUDIO-7 Date CLAUDIO - 7 assessed: 04/30/24 Feeling nervous, anxious, or on edge: 2 = More than half the days Not being able to stop or control worryin = More than half the days Worrying too much about different things: 2 = More than half the days Trouble relaxin = More than half the days Being so restless that it is hard to sit still: 3 = Nearly every day Becoming easily annoyed or irritable: 1 = Several days Feeling afraid as if something awful might happen: 2 = More than half the days Total CLAUDIO-7 score (0-4 normal; 5-9 mild; 10-14 moderate; 15-21 severe): 14 Source: Developed by Drs. Alexander Johnson, Ирина Lovett, Giovanni Stallworth and colleagues, with an educational keturah from [employer] Review of Systems Const Denies chills, Denies fatigue, Denies fever(s), Denies headache(s) and Denies weakness ENT Denies dizziness and Denies headache(s) Card Denies dyspnea Resp Denies cough, Denies dyspnea, Denies wheezing and Denies other (shortness of breath) Musc Denies numbness and Denies tingling Neuro Denies dizziness, Denies headache(s), Denies numbness, Denies tingling and Denies weakness Psych Reports anxiety and Reports depression Endo Denies fatigue Aller/Immun Denies wheezing Physical exam (Primary Care) Vital Signs: Last Vital Signs Temp 97.4 F 10/30/24 10:57 Pulse 102 H 10/30/24 10:57 Resp 16 10/30/24 10:57 BP 122/60 10/30/24 10:57 Pulse Ox 99 10/30/24 10:57 Oxygen Delivery Method Room Air 10/30/24 10:57 BMI result Body Mass Index 16.3 Tobacco/Smoking Status: Tobacco use Status Tobacco use date assessed 10/30/24 10/30/24 10:58 Patient Tobacco Use Status Never used Tobacco 10/30/24 10:58 e-Cigarette/Vaping Use Currently Using 10/30/24 10:58 PHQ-9: PHQ-9 Score PHQ-9: Total score 14 10/30/24 11:38 Thrive Assessment: Date of Thrive Assessment Date Thrive assessed 04/30/24 10/30/24 10:58 Currently or been in a relationship where the following occur: No concerns reported Const General: well developed; No acute distress Nutritional Appearance: underweight Orientation/consciousness: patient oriented x3 HENMT Head: Yes normocephalic and Yes atraumatic Eyes General: appearance normal, both eyes and all related structures Pupils: Equal, round and reactive pupils present EOM: EOMs intact bilaterally Resp Effort & Inspection: normal respiratory effort Neuro General: patient oriented x3 and gait normal Cranial nerves: Yes Equal, round and reactive pupils present Psych Affect: normal affect Coding Level of Care Code Est Pt Level 4 (42580) Diagnoses Depression with anxiety F41.8 Underweight R63.6 Mild anemia D64.9 Marijuana use F12.90 Generalized seizure disorder G40.309 Assessment & Plan Assessment & Plan (1) Depression with anxiety: Code(s): F41.8 - Other specified anxiety disorders Category: Medical Plan: Ongoing?anxiety?and?depression?and?patient?notes?increased?stressors. He?says?that?citalopram?is?helping?and?declines?an?increase?in?dose?though?he?says?he?is?only?getting?30?day?prescriptions?and?would?like?a ?90?prescription. He?had?been?referred?to?Psychiatry?but?voicemail?was?full?and?he?was?never?contacted. Referring?him?to?[facility]?patient's?psychiatric?consult?team?again. Continue?follow-up?with?therapist (2) Underweight: Code(s): R63.6 - Underweight Category: Medical Plan: Patient?remains?underweight?and?fluctuates?between?about?110?and 120?lb. Has?lost?about?7?lb?since?his?last?office?visit. Encouraged?him?to?work?on?getting?regular?meals?and?follow-up?with?therapist. (3) Mild anemia: Code(s): D64.9 - Anemia, unspecified Category: Medical Plan: History?of?mild?anemia Likely?secondary?to underweight?status Will?recheck?this (4) Marijuana use: Code(s): F12.90 - Cannabis use, unspecified, uncomplicated Category: Social Hx Plan: Patient?notes?he?has?had?some challenges?with?marijuana?use Overall?says?that?it?helps?his?mood?and?appetite. (5) Generalized seizure disorder: Code(s): G40.309 - Generalized idiopathic epilepsy and epileptic syndromes, not intractable, without status epilepticus Category: Medical Plan: Followed?by??[facility]?who?is?adjusting?his?Depakote?and?Keppra.??Increasing?Depakote?and?weaning?off?of?Keppra Most?recent?note?is?incomplete?and?I?will?request?this?again. Orders: Referrals Psychiatry Outpatient Consultation Service F41.8 - Other specified anxiety disorders, R63.4 - Abnormal weight loss, R63.6 - Underweight Medications: Refilled citalopram 20 mg PO DAILY 90 days 90 tabs 2RF
[2024-10-30 10:57] VITALS: BP 122/60; PULSE 102; RESP 16; TEMP 36.3; O2SAT 99; BMI 16.3
== END 2024-10-30 11:40 | disposition home or self-care (01) ==
LOC: HO.HMCFM 10:51
PROVIDERS: PCP Family Medicine; Visit Provider Family Medicine
DX: G40.309 Generalized idiopathic epilepsy and epileptic syndromes, not intractable, without status epilepticus (principal); F41.8 Other specified anxiety disorders; R63.6 Underweight; D64.9 Anemia, unspecified; F12.90 Cannabis use, unspecified, uncomplicated

== ENCOUNTER → 2024-10-30 10:50 | Outpatient (BNVA) | payer OTHER, SELFPAY | PROVIDERS: PCP Family Medicine; Visit Provider Family Medicine | DX: F41.8 Other specified anxiety disorders (principal); R63.6 Underweight; Z68.1 Body mass index [BMI] 19.9 or less, adult; D64.9 Anemia, unspecified; F12.90 Cannabis use, unspecified, uncomplicated; G40.309 Generalized idiopathic epilepsy and epileptic syndromes, not intractable, without status epilepticus | CPT/HCPCS: 99212 ==